=== PATIENT | female | born 1975 | race Asian ===

== ENCOUNTER 2017-08-12 21:00 | Emergency (ER) | payer OTHER ==
[~2017-08-12] VITALS: Ht 160 cm; Wt 57.2 kg
[2017-08-12] MEDS ORDERED: NKM (21:27)
[2017-08-12 21:28] VITALS: BP 122/69
[2017-08-12] MEDS ORDERED: IBUPROFEN600 MG ORAL (21:57)
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
[2017-08-12 22:19] VITALS: BP 122/69
--- NOTE | 2017-08-13 09:43 | Diagnostic Imaging Report ---
Indication: Right leg pain Technique: XRAY LEG LOWER TIB/FIB 2V RIGHT Comparison: None Findings: There is no acute fracture or dislocation. Soft tissues are grossly unremarkable. Impression: No acute osseous abnormality.
--- NOTE | 2017-08-13 09:44 | Diagnostic Imaging Report ---
Indication: Left hand pain Technique: XRAY HAND MIN 3V LEFT Comparison: None Findings: There is no radiographically evident acute fracture or dislocation. The soft tissues are grossly unremarkable. Bone mineralization is within normal limits. Impression: No acute osseous abnormality.
== END 2017-08-12 22:19 | disposition home or self-care (01) ==
LOC: EMR 21:44
DX: S60.222A Contusion of left hand, initial encounter (principal); S80.11XA Contusion of right lower leg, initial encounter; V49.9XXA Car occupant (driver) (passenger) injured in unspecified traffic accident, initial encounter; Y93.9 Activity, unspecified; Y99.9 Unspecified external cause status; M54.9 Dorsalgia, unspecified; M25.50 Pain in unspecified joint; M79.1 Myalgia
CPT/HCPCS: 99284